=== PATIENT | female | born 1975 | race Caucasian/White ===

== ENCOUNTER 2017-04-25 09:53 | Emergency (ER) | payer SELFPAY ==
[~2017-04-25] VITALS: Ht 160 cm; Wt 135.0 kg
[~2017-04-25 09:53] MED LIST: ADVAI500I PO; ALBU0.086 INH; ALBU8I INH; ZITH250T PO; ZOFR4TAB3 SL
[2017-04-25 09:54] VITALS: BP 156/95; PULSE 56; RESP 14; TEMP 98.5; O2SAT 97
--- NOTE | 2017-04-25 10:34 | PD ---
HPI Chief Complaint: Headache Time Seen by Provider: 10:18 Travel History International Travel<30 days: No Contact w/Intl Traveler<30days: No Traveled to known affect area: No History of Present Illness HPI 41-year-old female complains of headache, nausea and diarrhea. Patient states that the symptoms started last night. Patient states the headache aching headache diffuse over the head. Patient denies any visual change. Patient states that she has mild aching pain in her neck and shoulder pads and upper extremity. Patient denies any chest pain or shortness of breath. Patient denies abdominal pain. Patient states that she has nausea but no vomiting. Patient states that she has mild intermittent diarrhea. Patient denies any dysuria or frequency. Patient denies vaginal vaginal discharge or bleeding. Patient states that she had low-grade fever and chills at home. PFSH Past Medical History Asthma: Yes Respiratory: Yes (asthma) ?: Not Social History Alcohol Use: No Tobacco Use: No Allergies-Medications (Allergen,Severity, Reaction): Coded Allergies: No Known Allergies (Verified Adverse Reaction, Unknown, 04/25/17) Reported Meds & Prescriptions Reported Meds & Active Scripts Active Zofran Odt (Ondansetron Odt) 4 Mg Tab 4 Mg SL Q6HR PRN Review of Systems General / Constitutional: Positive: Fever, Chills Eyes: No: Visual changes HENT: Positive: Headaches Cardiovascular: No: Chest Pain or Discomfort Respiratory: No: Shortness of Breath Gastrointestinal: Positive: Nausea, Diarrhea, No: Abdominal Pain Genitourinary: No: Dysuria Musculoskeletal: No: Pain Skin: No Rash Neurologic: No: Weakness Psychiatric: No: Depression Endocrine: No: Polydipsia Hematologic/Lymphatic: No: Easy Bruising Physical Exam Narrative GENERAL: Well-nourished, well-developed patient. SKIN: Focused skin assessment warm/dry. HEAD: Normocephalic. EYES: No scleral icterus. No injection or drainage. NECK: Supple, trachea midline. No JVD or lymphadenopathy. No meningismus CARDIOVASCULAR: Regular rate and rhythm without murmurs, gallops, or rubs. RESPIRATORY: Breath sounds equal bilaterally. No accessory muscle use. GASTROINTESTINAL: Abdomen soft, non-tender, nondistended. MUSCULOSKELETAL: No cyanosis, or edema. BACK: Nontender without obvious deformity. No CVA tenderness. Neurologic exam normal. Data Data Last Documented VS Vital Signs Date Time Temp Pulse Resp B/P (MAP) Pulse Ox O2 Delivery O2 Flow Rate FiO2 04/25/17 12:24 04/25/17 12:23 60 14 98 Room Air 04/25/17 09:54 98.5 Orders Orders Complete Blood Count With Diff (04/25/17 10:22) Basic Metabolic Panel (Bmp) (04/25/17 10:22) Influenzae A/B Antigen (04/25/17 10:22) Iv Access Insert/Monitor (04/25/17 10:22) Ed Urine Pregnancytest Poc (04/25/17 10:22) Ct Brain W/O Iv Contrast(Rout) (04/25/17 10:22) Acetaminophen (Tylenol) (04/25/17 10:45) Ed Discharge Order (04/25/17 11:44) Labs Laboratory Tests Test 04/25/17 10:20 White Blood Count 8.3 TH/MM3 Red Blood Count 4.48 MIL/MM3 Hemoglobin 13.9 GM/DL Hematocrit 41.0 % Mean Corpuscular Volume 91.5 FL Mean Corpuscular Hemoglobin 30.9 PG Mean Corpuscular Hemoglobin Concent 33.8 % Red Cell Distribution Width 12.6 % Platelet Count 279 TH/MM3 Mean Platelet Volume 8.1 FL Neutrophils (%) (Auto) 70.4 % Lymphocytes (%) (Auto) 22.4 % Monocytes (%) (Auto) 6.1 % Eosinophils (%) (Auto) 0.8 % Basophils (%) (Auto) 0.3 % Neutrophils # (Auto) 5.9 TH/MM3 Lymphocytes # (Auto) 1.9 TH/MM3 Monocytes # (Auto) 0.5 TH/MM3 Eosinophils # (Auto) 0.1 TH/MM3 Basophils # (Auto) 0.0 TH/MM3 CBC Comment DIFF FINAL Differential Comment Blood Urea Nitrogen 12 MG/DL Creatinine 0.66 MG/DL Random Glucose 86 MG/DL Calcium Level 9.1 MG/DL Sodium Level 139 MEQ/L Potassium Level 3.5 MEQ/L Chloride Level 104 MEQ/L Carbon Dioxide Level 28.3 MEQ/L Anion Gap 7 MEQ/L Estimat Glomerular Filtration Rate 98 ML/MIN MDM Medical Decision Making Medical Screen Exam Complete: Yes Emergency Medical Condition: Yes Interpretation(s) 11:[address] scan of brain negative acute pathology. CBC within normal limit. BMP within normal limit. Influenza AB antigen negative. Differential Diagnosis Differential diagnosis including viral syndrome, tension headache, cluster headache, migraine headache, encephalitis. Narrative Course 41-year-old female with headache, nausea, diarrhea. Diagnosis Primary Impression: Cephalgia Qualified Codes: R51 - Headache Additional Impression: Viral syndrome Patient Instructions: General Instructions Additional Instructions: Tylenol and Advil for the headache. Zofran as needed for nausea. Follow-up with personal physician. Return if worse. Med/Other Pt SpecificInfo: Prescription(s) given Scripts Ondansetron Odt (Zofran Odt) 4 Mg Tab 4 MG SL Q6HR Y for Nausea/Vomiting, #10 TAB 0 Refills Prov: Oleksandr Hall MD 04/25/17 Disposition: 01 DISCHARGE HOME Condition: Stable Oleksandr Hall MD Apr 25, 2017 10:34
[2017-04-25] MEDS ORDERED: ACETAMINOPHEN 325 MG TAB PO ONE (10:45)
[2017-04-25 10:50] LABS: AUTOMATED NEUTROPHIL # 5.9 TH/MM3 (1.8-7.7); BASOPHIL % 0.3 % (0.0-2.0); EOSINOPHIL # 0.1 TH/MM3 (0-0.4); EOSINOPHIL % 0.8 % (0.0-4.0); HEMO FLAGS DIFF FINAL; LYMPH % 22.4 % (9.0-44.0); LYMPHOCYTE # 1.9 TH/MM3 (1.0-4.8); MEAN CELL VOLUME 91.5 FL (80.0-100.0); MEAN CORPUSCULAR HEMOGLOBIN 30.9 PG (27.0-34.0); MEAN CORPUSCULAR HGB CONC 33.8 % (32.0-36.0); MONO % 6.1 % (0.0-8.0); NEUT % 70.4 % (16.0-70.0); PLATELET COUNT 279 TH/MM3 (150-450); RED BLOOD COUNT 4.48 MIL/MM3 (4.00-5.30); RED CELL DISTRIBUTION WIDTH 12.6 % (11.6-17.2); WHITE BLOOD COUNT 8.3 TH/MM3 (4.0-11.0)
[2017-04-25 11:16] LABS: BICARBONATE 28.3 MEQ/L (21.0-32.0); POTASSIUM 3.5 MEQ/L (3.5-5.1)
--- NOTE | 2017-04-25 11:21 | RADRPT ---
EXAM DATE/TIME: 04/25/2017 10:59 [facility] COMPARISON: No previous studies available for comparison. INDICATIONS : Severe head and body ache since last night RADIATION DOSE: 34.40 CTDIvol (mGy) MEDICAL HISTORY : None SURGICAL HISTORY : None. ENCOUNTER: Initial ACUITY: 1 day PAIN SCALE: 6/10 LOCATION: cranial TECHNIQUE: Multiple contiguous axial images were obtained of the head. Using automated exposure control and adj ustment of the mA and/or kV according to patient size, radiation dose was kept as low as reasonably a chievable to obtain optimal diagnostic quality images. DICOM format image data is available electro nically for review and comparison. FINDINGS: CEREBRUM: The ventricles are normal for age. No evidence of midline shift, mass lesion, hemorrhage or acute in farction. No extra-axial fluid collections are seen. POSTERIOR FOSSA: The cerebellum and brainstem are intact. The 4th ventricle is midline. The cerebellopontine angle i s unremarkable. EXTRACRANIAL: The visualized portion of the orbits is intact. SKULL: The calvaria is intact. No evidence of skull fracture. CONCLUSION: Negative for an acute process. John Gold MD FACR on April 25, 2017 at 11:18 Board Certified Radiologist. This report was verified electronically.
[2017-04-25] MEDS ORDERED: ZOFR4TAB3 SL (11:35)
[2017-04-25 12:23] VITALS: BP 145/88; PULSE 60; RESP 14; O2SAT 98
== END 2017-04-25 12:27 | disposition home or self-care (01) ==
LOC: NEPD 09:53
DX: B34.9 Viral infection, unspecified (principal); R51 Headache; J45.909 Unspecified asthma, uncomplicated
CPT/HCPCS: 70450; 80048; 84703; 85025; 87804; 99284